=== PATIENT | male | born 1945 | race Two or more races ===

== ENCOUNTER 2019-04-03 11:05 | Observation (INO) | payer MEDICARE ==
[~2019-04-03] VITALS: Ht 167.6 cm; Wt 72.6 kg
[2019-04-03] VITALS (8 sets, daily range): BP systolic 87–106; BP diastolic 49–73; BMI 25.8
--- NOTE | ~2019-04-03 | HEMODYNAMI ---
PATIENT:TAWNYA AKERS MEDICAL RECORD: [id number] : 43 LOCATION[id number] [id number] ADMISSION DATE: 04/03/19 Generatedon:04/04/201912:10 Patient name: TAWNYA AKERS Patient #: [id number] SSN: [id number] : 1945 Date of study: 04/04/2019 Page: Of Hemodynamic Procedure Report Patient Data Patient Demographics Procedure consent was obtained First Name: TAWNYA Gender: Male Last Name: OSWALD : 1945 Patient #: [id number] Age: 73 year(s) Race: Other SSN: [id number] Additional ID: [id number] Contact details Address: [address] [place] [address] circle State: [place] City: [place] Zip code: [address] Past Medical History Allergies: No known allergies Admission Admission Data Admission Date: 04/03/2019 Admission Time: 12:48 Arrival Date: 04/04/2019 Arrival Time: 0:00 Admit Source: Other Insurance Payor: Private Room #: [id number] health insurance [facility] #: [id number] Height (in.): 66 BSA: 1.82 (m2) Height (cm.): 167.64 BMI: 25.88 (kg/m2) Weight (lbs.): 160.32 Weight (kg.): 72.72 Lab Results Lab Result Date: 04/04/2019 Lab Result Time: 0:00 Biochemistry Name Units Result Min Max BUN mg/dl 42 --(----)-* 7 18 Creatinine mg/dl 1.8 --(----)-* 0.6 1.3 eGFR ml/min 39 *-(----)-- 90 120 NONAFRICAN Troponin l ng/ml 38.653 --(----)-* 0 0.06 CBC Name Units Result Min Max Hematocrit % 38.2 *-(----)-- 42 54 Hemoglobin g/dl 12.7 -*(----)-- 13.5 17.5 Procedure Procedure Types Cath Procedure Diagnostic Procedure [facility] w/Coronaries Sedation Charges Moderate Sedation up to 30 minutes PCI Procedure Coronary Stent Coronary Stent Initial x2 PTCA PTCA Initial PTCA Additional Hemochron ACT Test Procedure Description Procedure Date Procedure Date: 04/04/2019 Procedure Start Time: 11:24 Procedure End Time: 12:04 Procedure Staff Name Function Chandan Paige MD Performing Physician Avelina Pittman RT Monitor Lev Peralta RN Nurse Megan Thomason RT Scrub Indication Shortness of breath Procedure Data Cath Procedure Fluoroscopy Diagnostic fluoroscopy Total fluoroscopy Time: time: 15.3 min 15.3 min Diagnostic fluoroscopy Total fluoroscopy dose: dose: 1500 mGy 1500 mGy Contrast Material Contrast Material Type Amount (ml) Isovue 300 214 Entry Location Entry Primary Successful Side Size Upsize Upsize Entry Closure Succes sful Closure Location (Fr) 1 (Fr) 2 (Fr) Remarks Device Remarks Femoral Right 5 Fr 6 Fr 7 Fr Exoseal artery Short Short Estimated blood loss: 10 ml Diagnostic catheters Device Type Used For End Catheter Placement MULTIPACK Pigtail 5 Fr Procedure catheter MULTIPACK JL 4.0 5Fr Procedure catheter MULTIPACK 3DRC 5Fr Procedure catheter Procedure Complications No complications Procedure Medications Medication Administration Route Dosage Oxygen etCO2 Nasal cannula 2 l/min Lidocaine 2% added to field 20 Heparin Flush Bag added to field 2 bags (1000units/500ml NS) 0.9% NaCl I.V. 100 ml/hr Versed I.V. 1 mg Fentanyl I.V. 50 mcg Heparin Bolus I.V. 4000 units Integrilin (Bolus I.V. 6.8 ml 2mg/ml) Versed I.V. 1 mg Fentanyl I.V. 50 mcg Versed I.V. 0.5 mg Hemodynamics Rest BSA: 1.82 (m2) HGB: 12.7 (g/dl) O2 Consumption: Estimated: 204.48 (ml/min) O2 Co nsumption indexed: Estimated:112.35 (ml/min/m) Heart Rate: 63 (bpm) Snapshots Pre Cath Intra NCS Post Cath Vital Signs Time Heart Resp SPO2 etCO2 NIBP (mmHg) Rhythm Pain Sedation Rate (ipm) (%) (mmHg) Status Level (bpm) 10:58:29 58 15 99 0 147/91(120) NSR 0 (11) 10(A) , No pain 11:02:47 63 14 99 0 144/74(119) NSR 0 (11) 10(A) , No pain 11:07:03 62 27 100 25.7 132/79(110) NSR 0 (11) 10(A) , No pain 11:11:17 61 17 99 0 138/72(103) NSR 0 (11) 10(A) , No pain 11:15:35 59 16 99 30.2 125/62(99) NSR 0 (11) 10(A) , No pain 11:20:34 58 17 98 32.5 115/61(88) NSR 0 (11) 10(A) , No pain 11:24:42 57 16 99 32.5 125/66(93) NSR 0 (11) 10(A) , No pain 11:28:56 56 15 98 33.3 111/63(84) NSR 0 (11) 9(A) , No pain 11:33:04 66 14 98 34 112/64(87) NSR 0 (11) 9(A) , No pain 11:37:14 56 14 98 36.3 111/60(83) NSR 0 (11) 9(A) , No pain 11:41:23 65 15 98 35.5 113/58(86) NSR 0 (11) 9(A) , No pain 11:45:31 56 15 98 35.5 116/64(91) NSR 0 (11) 9(A) , No pain 11:49:41 57 16 99 35.5 115/62(85) NSR 0 (11) 9(A) , No pain 11:53:49 60 16 99 34.7 118/68(89) NSR 0 (11) 9(A) , No pain 11:58:01 61 15 99 34 115/63(99) NSR 0 (11) 10(A) , No pain 12:03:00 59 17 99 31 Measuring NSR 0 (11) 10(A) , No pain 12:03:04 58 16 99 33.2 126/68(104) NSR 0 (11) 10(A) , No pain Medications Time Medication Route Dose Verified Delivered Reason Notes Effectiveness by by 11:14:46 Oxygen etCO2 2 Chandan Buffie used for Nasal l/min Royal Peralta RN procedure cannula 11:14:52 Lidocaine 2% added 20ml Chandan Buffie used for to vial Royal Peralta RN procedure field 11:14:58 Heparin Flush added 2 Chandan Buffie used for Bag to bags Royal Peralta RN procedure (1000units/500ml field NS) 11:15:11 0.9% NaCl I.V. 100 Chandan Buffie used for ml/hr Royal Peralta RN procedure 11:22:01 Versed I.V. 1 mg Chandan Bainsie for sedation Royal Peralta RN 11:22:06 Fentanyl I.V. 50 Chandan Buffie for sedation mcg Royal Peralta RN 11:26:48 Versed I.V. 1 mg Chandan Buffie for sedation Royal Peralta RN 11:26:51 Fentanyl I.V. 50 Chandan Buffie for sedation mcg Royal Peralta RN 11:30:29 Heparin Bolus I.V. 4000 Chandan Bainsie for verif ied units Royal Peralta RN anticoagulation with dr paige 11:32:30 Integrilin I.V. 6.8 Chandan Buffie for waste d (Bolus 2mg/ml) ml Royal Peralta RN antiplatelet 3.2 ml therapy of vial 11:39:35 Versed I.V. 0.5 Chandan Buffie for sedation mg Royal Peralta RN Procedure Log Time Note 10:07:10 Informed consent obtained and on chart 10:11:37 Arrival Date: 04/04/2019 12:00:00 AM 10:11:43 Insurance Payor : Private health insurance 10:12:21 Patient Height : 66 inches 10:12:31 Patient Weight : 160.32 lbs 10:12:37 Admit Source: Other 10:15:32 Lab Result : Creatinine 1.8 mg/dl 10:15:32 Lab Result : BUN 42 mg/dl 10:15:32 Lab Result : Hemoglobin 12.7 g/dl 10:15:32 Lab Result : Hematocrit 38.2 % 10:15:32 Lab Result : Troponin l 38.653 ng/ml 10:15:32 Lab Result : eGFR NONAFRICAN 39 ml/min 10:15:42 Diagnostic Cath Status : Urgent 10:16:06 Indication : Shortness of breath 10:16:20 Time tracking: Regular hours (M-F 7:00 - 5:00) 10:16:25 Plan of Care:Hemodynamics will remain stable., Cardiac rhythm will remain stable., Comfort level will be maintained., Respiratory function will remain adequate., Patient/ family verbilizes understanding of procedure., Procedure tolerated without complication., Recovers from procedure without complications.. 10:16:31 Procedure Status Urgent Heart Cath (IP). 10:16:43 H&P Date Dictated: 04/04/2019 Emergent; H&P N/A, Within 30 days and on chart.. 10:19:10 Risk of Mortality: 2.0 10:19:14 Risk of blood transfusion: 4.7 10:19:18 Risk of SARA: 17.2 10:40:15 Avelina Pittman RT(R) sent for patient. Start room use. 10:40:50 Patient NPO since Midnight. 10:41:21 Patient allergic to No known allergies 10:44:57 ACC Patient presents with Non-STEMI CCS Anginal Class 2--Slight limitation of ordinary activity. 10:45:08 Stress Test: no; N/A ? 10:45:14 Lab results completed and on chart. 10:45:17 Alarms reviewed by R. N. 10:45:18 Sharps counted by scrub and verified by R.N. 10:51:39 Patient received from Med II to CCL 1 Alert and oriented. Tansferred to table in Supine position. 10:51:42 Warm blankets applied, and pawel hugger turned on for patient comfort. 10:51:42 Correct patient and procedure confirmed by team. 10:51:46 ECG and BP/O2 sat monitors applied to patient. 10:51:51 Pre-procedure instructions explained to patient. 10:51:51 Pre-op teaching completed and patient verbalized understanding. 10:52:08 Patient diabetic? Yes. 10:52:11 If diabetic: On Metformin? No 10:57:00 Is the patient allergic to Iodine/contrast media? No. 10:57:03 Was the patient premedicated? Yes 10:57:04 Family in waiting room. 10:57:14 Full Disclosure recording started 10:58:00 Is patient on blood thinner?Yes 10:58:03 ACC The patient was administered the following blood thiners within the last 24 hours: ACCPlavix 600MG AT 0850 10:58:06 ----Pre-sedation anethsthesia assessment.---- 10:58:09 Previous problem with sedation/anesthesia? No ? 10:58:11 Snore? Yes 10:58:13 Sleep apnea? No 10:58:15 Deviated septum? No 10:58:16 Opens mouth fully? Yes 10:58:17 Sticks out tongue? Yes 10:58:19 Airway obstruction? No ? 10:58:22 Dentures? No ? 10:58:31 Pre procedure: right dorsailis pedis pulse 1+ Palpable, but thready & weak; easily obliterated 10:58:34 Patient pain scale 0/10 ?. 10:58:40 Right groin area was prepped with chlora-prep and draped in sterile fashion 10:58:54 IV patent on arrival in left antecubital with 0.9% NaCl at KVO. 10:59:15 Baseline sample Acquired. 10:59:22 Rhythm: sinus rhythm 11:06:02 Use device set Femoral Dx 11:06:03 ACIST Syringe (29406) opened to sterile field. 11:06:03 Bag Decanter (2002S) opened to sterile field. 11:06:04 ACIST Hand Control (51366) opened to sterile field. 11:06:05 ACIST Manifold (06941) opened to sterile field. 11:06:06 Tegaderm 4 x 4 (1626W) opened to sterile field. 11:06:07 Medline Cath Pack ([id number]) opened to sterile field. 11:06:08 DIAGNOSTIC Multipack 5Fr catheter set (WE2991) opened to sterile field. 11:06:09 SHEATH 5FR [place] (RXS540) opened to sterile field. 11:06:09 EMERALD Guide Wire (286-096) opened to sterile field. 11:14:46 Oxygen 2 l/min etCO2 Nasal cannula was administered by Lev Peralta RN; used for procedure; Verbal order read back and verified. 11:14:52 Lidocaine 2% 20ml vial added to field was administered by Lev Peralta RN; used for procedure; Verbal order read back and verified. 11:14:58 Heparin Flush Bag (1000units/500ml NS) 2 bags added to field was administered by Lev Peralta RN; used for procedure; Verbal order read back and verified. 11:15:11 0.9% NaCl 100 ml/hr I.V. was administered by Lev Peralta RN; used for procedure; Verbal order read back and verified. 11:21:13 --------ALL STOP TIME OUT------ 11:21:14 Final Timeout: patient, procedure, and site verified with staff and physician. All members of the team are in agreement. 11::15 Right groin site verified by team. 11:21:18 Fire Safety Assessment: A--An alcohol-based skin anteseptic being used preoperatively., C--Open oxygen or nitrous oxide is being used., D--An ESU, laser, or fiber-optic light is being used. 11:21:22 Physical assessment completed. ASA score P 2 - A patient with mild systemic disease as per Chandan Paige MD. 11:21:27 3b) 30-44 Moderately reduced kidney function. 11:21:30 Maximum allowable contrast dose (3.7 X eGFR X 0.75)108 ml. 11:21:35 Sedation plan: IV Moderate Sedation Medication:Versed, Fentanyl 11:22:01 Versed 1 mg I.V. was administered by Lev Peralta RN; for sedation; Verbal order read back and verified. 11:22:06 Fentanyl 50 mcg I.V. was administered by Lev Peralta RN; for sedation; Verbal order read back and verified. 11:24:08 Procedure started. 11:24:10 Zero performed for pressure channel P1 11:24:15 Zero performed for pressure channel P1 11:24:23 Local anesthetic to right femoral artery with Lidocaine 2% by Chandan Paige MD.INITIAL ACCESS ONLY 11:24:47 A 5 Fr sheath was inserted into the Right Femoral artery 11:25:11 A MULTIPACK Pigtail 5 Fr catheter was advanced over the wire and used for Procedure. 11::28 LV gram done using DECKER ::31 Injector settings: Ml/sec: 10, Volume: 20, 11::18 EF : 50 % 11::22 Catheter removed. 11::28 A MULTIPACK JL 4.0 5Fr catheter was advanced over the wire and used for Procedure. 11:26:48 Versed 1 mg I.V. was administered by Lev Peralta RN; for sedation; Verbal order read back and verified. 11:26:51 Fentanyl 50 mcg I.V. was administered by Lev Peralta RN; for sedation; Verbal order read back and verified. 11:27:31 LCA angiography performed. 11:27:33 Catheter removed. 11:27:37 A MULTIPACK 3DRC 5Fr catheter was advanced over the wire and used for Procedure. 11:28:28 RCA angiography performed. 11:28:30 Catheter removed. 11:28:42 GUIDE 6FR AR 1.0 SH catheter ([id number]) opened to sterile field. 11:28:44 CHOICE PT Extra Support 182cm wire ([id number]) opened to sterile field. 11:28:44 INFLATOR Merit BasixCompak (TI0435) opened to sterile field. 11:28:45 SHEATH 6FR [place] (HFR450) opened to sterile field. 11:28:48 Proceeding to intervention. 11:28:54 Sheath upsized to a 6 Fr Short. 11:29:17 Pre PCI Site: [place] mRCA has 90% stenosis. 11:29:53 ACCDominant side:Right 11:30:01 6 Fr AR 1 SH guide catheter was inserted over the wire 11:30:29 Heparin Bolus 4000 units I.V. was administered by Lev Peralta RN; for anticoagulation; verified with dr paige Verbal order read back and verified. 11:30:50 CHOICE ES 182 wire advanced. 11:32:21 Wire advanced across lesion. 11:32:23 Place stent Inflation Number: 1 A ALEX RX 2.5 x 18 stent ([id number]) was prepped and advanced across the Dist RCA . The stent was deployed at 11 EMILIE for 0:00 (min:sec) . 11:32:30 Integrilin (Bolus 2mg/ml) 6.8 ml I.V. was administered by Lev Peralta RN; for antiplatelet therapy; wasted 3.2 ml of vial Verbal order read back and verified. 11:33:07 Inflation number: 2 The stent balloon was then re-inflated across the Dist RCA to 19 EMILIE for 0:00 (min:sec) . 11:33:33 Stent catheter was removed intact over wire. 11:33:42 Wire removed. 11:33:42 Guide catheter removed. 11:34:45 CHOICE PT Extra Support J 300cm guide wire ([id number]) opened to sterile field. 11:34:50 GUIDE 6FR XBLAD 3.5 SH catheter ([id number]) opened to sterile field. 11:34:59 6 Fr XBLAD 3.5 guide catheter was inserted over the wire 11:35:26 Pre PCI Site: [place] mLAD has 100% stenosis. 11:35:44 CHOICE ES 300 wire advanced. 11:37:58 Wire advanced across lesion. 11:38:06 Inflate balloon Inflation number: 1 A EMERGE OTW 2.0 x 20 balloon ([id number]) was prepped and advanced across the Mid LAD , then inflated to 7 EMILIE for 0:00 (min:sec) . 11:38:20 Balloon removed over the wire. 11:39:35 Versed 0.5 mg I.V. was administered by Lev Peralta RN; for sedation; Verbal order read back and verified. 11:40:57 The EMERGE OTW 1.5 x 20 balloon ([id number]) was advanced and then removed because of failure to cross lesion 11:42:24 Inflate balloon Inflation number: 2 A EUPHORA 1.5 x 20 Balloon ([id number]) was prepped and advanced across the Mid LAD , then inflated to 21 EMILIE for 0:00 (min:sec) . 11:43:13 Balloon removed over the wire. 11:43:18 Wire removed. 11:43:19 Guide catheter removed. 11:43:31 SHEATH 7FR [place] (WKQ615) opened to sterile field. 11:43:49 GUIDE 7FR EBU 3.5 SH catheter ([id number]) opened to sterile field. 11:44:39 Sheath upsized to a 7 Fr Short. 11:44:54 7 Fr EBU 3.5SH guide catheter was inserted over the wire 11:45:04 Guide Catheter removed. unable to cannulate vessel. 11:45:12 GUIDE 7FR EBU 4.0 SH catheter ([id number]) opened to sterile field. 11:45:45 7 Fr EBU 4 SH guide catheter was inserted over the wire 11:46:18 CHOICE PT Extra Support 182cm wire ([id number]) opened to sterile field. 11:46:28 CHOICE ES 182 wire advanced ACROSS THE CIRC 11:49:54 Inflation number: 1 The EUPHORA 1.5 x 20 Balloon ([id number]) was reinflated across the Mid CX , to 21 EMILIE for 0:00 (min:sec) . 11:50:07 Inflation number: 2 The EUPHORA 1.5 x 20 Balloon ([id number]) was reinflated across the Mid CX , to 21 EMILIE for 0:00 (min:sec) . 11:50:21 Inflation number: 3 The EUPHORA 1.5 x 20 Balloon ([id number]) was reinflated across the Mid CX , to 21 EMILIE for 0:00 (min:sec) . 11:50:35 ACT drawn and resulted at 279 seconds. (normal therapeutic range 180-240 seconds). 11:50:59 Inflation number: 4 The EUPHORA 1.5 x 20 Balloon ([id number]) was reinflated across the Mid CX , to 21 EMILIE for 0:00 (min:sec) . 11:51:22 Inflation number: 5 The EUPHORA 1.5 x 20 Balloon ([id number]) was reinflated across the Mid CX , to 21 EMILIE for 0:00 (min:sec) . 11:51:36 Inflation number: 6 The EUPHORA 1.5 x 20 Balloon ([id number]) was reinflated across the Mid CX , to 21 EMILIE for 0:00 (min:sec) . 11:51:49 Balloon removed over the wire. 11:53:08 Inflate balloon Inflation number: 7 A EUPHORA 2.0 x 20 Balloon ([id number]) was prepped and advanced across the Mid CX , then inflated to 19 EMLIIE for 0:00 (min:sec) . 11:53:20 Balloon removed over the wire. 11:55:08 Place stent Inflation Number: 8 A ALEX RX 2.0 x 26 stent ([id number]) was prepped and advanced across the Mid CX . The stent was deployed at 21 EMILIE for 0:00 (min:sec) . 11:55:31 Stent catheter was removed intact over wire. 11:56:15 Wire redirected to OM. 11:57:51 Inflation number: 1 The EUPHORA 1.5 x 20 Balloon ([id number]) was reinflated across the 1st Ob Melody , to 21 EMILIE for 0:00 (min:sec) . 12:00:01 Balloon removed over the wire. 12:00:01 Wire removed. 12:00:02 Guide catheter removed. 12:00:33 EXOSEAL 7Fr (EX700) opened to sterile field. 12:00:43 Sheath removed intact; hemostasis achieved with Exoseal to the Right Femoral artery. 12:00:46 Procedure ended.(Physican Out) 12:01:55 Fluoroscopy time 15.30 minutes. 12:02:00 Flurop Dose total: 1500 12:02:00 Fluoroscopy dose: 1500 mGy 12:02:11 Dose Area Product 60791 mGy/cm. 12:02:20 Contrast amount:Isovue 300 214ml. 12:02:22 Sharps counted by scrub and verified by R.N. 12:02:24 Maximum allowable dose exceeded? Yes. 12:02:31 Post-op/insertion site Right Femoral artery dressed using a 4 x 4 and Tegaderm. 12:02:34 Post-procedure physical assessment completed. ASA score P 2 - A patient with mild systemic disease as per Chandan Paige MD. 12:02:36 Post procedure rhythm: unchanged. 12:02:39 Estimated blood loss: 10 ml 12:02:40 Post procedure instruction explained to patient.Patient verbalizes understanding. 12:02:41 Patient needs reinforcement of post procedure teaching. 12:03:17 Procedure type changed to Cath procedure, Diagnostic procedure, LHC, [facility] w/Coronaries, Sedation Charges, Moderate Sedation up to 30 minutes, PCI procedure, Coronary Stent, Coronary Stent Initial x2, PTCA, PTCA Initial, PTCA Additional, Hemochron ACT Test 12:04:19 Procedure and supply charges have been captured, reviewed, submitted and are correct. 12:04:22 Procedure Complication : No complications 12:04:24 Vital chart was stopped 12:04:25 [facility] Findings: MVD- PCI performed (see procedure note) 12:04:27 Operative report dictated upon procedure completion. 12:04:28 See physician's report for complete and final results. 12:04:30 Report given to PCU. 12:04:33 Patient transfered to PCU with Bed. 12:04:35 Procedure ended. 12:04:35 Full Disclosure recording stopped 12:04:47 ACC-PCI Only Patient was given prescriptions, or instructed by Chandan Paige MD to start/continue the following medications upon discharge: Plavix 12:04:49 End room use (Document Last) 12:09:17 End room use (Document Last) 12:09:40 End room use (Document Last) Intervention Summary Intervention Notes Time ActionType Lesion and Equipment Used Action# Pressure Duration Attributes 11:32:23 Place stent Dist RCA ALEX RX 2.5 x 1 11 00:00 18 stent ([id number]) 11:33:07 Reinflate Dist RCA ALEX RX 2.5 x 2 19 00:00 stent 18 stent balloon ([id number]) 11:38:06 Inflate Mid LAD EMERGE OTW 2.0 1 7 00:00 balloon x 20 balloon ([id number]) 11:40:57 Discard EMERGE OTW 1.5 Balloon x 20 balloon ([id number]) 11:42:24 Inflate Mid LAD EUPHORA 1.5 x 2 21 00:00 balloon 20 Balloon ([id number]) 11:49:54 Reinflate Mid CX EUPHORA 1.5 x 1 21 00:00 balloon 20 Balloon ([id number]) 11:50:07 Reinflate Mid CX EUPHORA 1.5 x 2 21 00:00 balloon 20 Balloon ([id number]) 11:50:21 Reinflate Mid CX EUPHORA 1.5 x 3 21 00:00 balloon 20 Balloon ([id number]) 11:50:59 Reinflate Mid CX EUPHORA 1.5 x 4 21 00:00 balloon 20 Balloon ([id number]) 11:51:22 Reinflate Mid CX EUPHORA 1.5 x 5 21 00:00 balloon 20 Balloon ([id number]) 11:51:36 Reinflate Mid CX EUPHORA 1.5 x 6 21 00:00 balloon 20 Balloon ([id number]) 11:53:08 Inflate Mid CX EUPHORA 2.0 x 7 19 00:00 balloon 20 Balloon ([id number]) 11:55:08 Place stent Mid CX ALEX RX 2.0 x 8 21 00:00 26 stent ([id number]) 11:57:51 Reinflate 1st Ob [place] EUPHORA 1.5 x 1 21 00:00 balloon 20 Balloon ([id number]) Device Usage Item Name Manufacture Quantity Catalog Number Hospital Part Current Minimal Lot# / Charge Number Stock Stock Serial# Code ACIST Syringe Acist 1 28206 579140 040887 844986 20 (22096) Medical Systems Inc Bag Decanter Microtek 1 2001S 750474 66809 271482 5 (2001S) Medical Inc. ACIST Hand Acist 1 28992 633887 878461 546375 5 Control Medical (82782) Systems Inc ACIST Manifold Acist 1 04884 733126 326016 817126 5 (34253) Medical Systems Inc Tegaderm 4 x 4 3M 1 1626W 006449 803986 856700 5 (1626W) Medline Cath Medline 1 [id number] 780193 97886 426930 5 Pack ([id number]) DIAGNOSTIC Cardinal 1 HJ9257 852667 64987 909067 30 Multipack 5Fr Health catheter set (LC5195) SHEATH 5FR Terumo 1 UQJ740 703116 956688 359483 5 [place] (JHQ883) EMERALD Guide Cardinal 1 502-455 402236 712490 957385 5 Wire (502-455) Health MULTIPACK Cardinal 1 512759 5 Pigtail 5 Fr Health catheter MULTIPACK JL Cardinal 1 993898 5 4.0 5Fr Health catheter MULTIPACK 3DRC Cardinal 1 254250 5 5Fr catheter Health GUIDE 6FR AR Medtronic 1 [id number] 780499 44704 326551 1 1.0 SH catheter ([id number]) CHOICE PT Vance 2 [id number] 695311 228110 579399 5 Extra Support Scientific 182cm wire ([id number]) INFLATOR Merit Merit 1 MO0139 990925 145168 973125 15 BasixUNX Medical (CE1642) SHEATH 6FR Terumo 1 LXP490 860323 242362 326393 40 [place] (MGL373) ALEX RX 2.5 x Medtronic 1 [id number] 691759 1571686 593781 5 [id number] 18 stent ([id number]) CHOICE PT Vance 1 [id number] 959090 305158 768988 5 Extra Support Scientific J 300cm guide wire ([id number]) GUIDE 6FR Cardinal 1 [id number] 277217 336694 594527 3 XBLAD 3.5 Health catheter (92769986) EMERGE OTW 2.0 Vance 1 [id number] 428884 397705 896350 5 [id number] x 20 balloon Scientific ([id number]) EMERGE OTW 1.5 Vance 1 [id number] 967143 001094 926327 5 36276478 x 20 balloon Scientific ([id number]) EUPHORA 1.5 x Medtronic 1 [id number] 326378 092840 282920 5 [id number] 20 Balloon ([id number]) SHEATH 7FR Terumo 1 HRI079 068282 193269 556134 5 [place] (XKX037) GUIDE 7FR EBU Medtronic 1 [id number] 129991 082540 207184 0 3.5 SH catheter ([id number]) GUIDE 7FR EBU Medtronic 1 [id number] 561941 382264 923240 0 4.0 SH catheter ([id number]) EUPHORA 2.0 x Medtronic 1 [id number] 455577 659225 751942 5 [id number] 20 Balloon ([id number]) ALEX RX 2.0 x Medtronic 1 [id number] 557561 6238234 327372 5 [id number] 26 stent ([id number]) EXOSEAL 7Fr Cardinal 1 EX700 627186 414524 461707 5 (EX700) Health Signature Audit [place] Stage Time Signature Unsigned Intra-Procedure 04/04/2019 Avelina Pittman 12:09:17 PM RT(R) Intra-Procedure 04/04/2019 Lev Peralta RN 12:09:40 PM Intra-Procedure 04/04/2019 Chandan Paige MD 12:09:57 PM [place] [id number] [facility] [place] [address]
[2019-04-03 11:47] LABS: BASOPHILS 0.2 % (0-2); EOSINOPHILS 0.6 % (0-7); HEMATOCRIT 42.7 % (42.0-54.0); HEMOGLOBIN 14.2 g/dL (13.5-17.5); IMMATURE GRANULOCYTES 0.2 % (0-5); LYMPHOCYTES 12.3 % (15-50); MCH 27.7 pg (26.0-34.0); MCHC 33.3 g/dL (31.0-37.0); MCV 83.2 fL (80.0-100.0); MEAN PLATELET VOLUME 11.4 fL (7.4-10.4); MONOCYTES 5.5 % (2-11); NEUTROPHILS 81.2 % (40-80); PLATELET COUNT 198 10x3/uL (130-400); RBC 5.13 10x6/uL (4.20-6.10); RDW 13.7 % (11.5-14.5); WBC 10.2 10x3/uL (4.8-10.8)
--- NOTE | 2019-04-03 11:55 | NUR ---
VOIDED 275ML OF URINE. ADMINISTERED 10MG HYDRALAZINE PER ORDER FOR HTN. ALSO 40MG LASIX IV PER ORDER.
--- NOTE | 2019-04-03 12:00 | NUR ---
REPEAT EKG PEFORMED S/P CARDIZEM ADMIN
[2019-04-03 12:01] LABS: INR 1.05 (0.85-1.17); PROTIME 13.2 SECONDS (11.6-15.0)
[2019-04-03 12:02] LABS: APTT 28.5 SECONDS (22.8-39.4)
[2019-04-03] MEDS ORDERED: COZAAR50 MG PO (12:03)
[2019-04-03] MEDS ORDERED: GLUCOTROL 5 MG T5 MG PO (12:03)
[2019-04-03] MEDS ORDERED: FLOMAX0.4 MG PO (12:03)
[2019-04-03] MEDS ORDERED: RESTORIL15 MG PO (12:03)
[2019-04-03] MEDS ORDERED: LIPITOR10 MG PO (12:04)
[2019-04-03] MEDS ORDERED: HYDROCODONE-IB1 EAC3 PO (12:04)
[2019-04-03] MEDS ORDERED: OMEPRAZOLE20 M1 PO (12:04)
[2019-04-03] MEDS ORDERED: VIAGRA50 MG PO (12:04)
--- NOTE | 2019-04-03 12:15 | NUR ---
CALLED REPORT TO [facility].
[2019-04-03 12:32] LABS: ALBUMIN 3.4 g/dL (3.4-5.0); ALKALINE PHOSPHATASE 63 U/L (46-116); ALT (SGPT) 24 U/L (10-68); BILIRUBIN - TOTAL 1.15 mg/dL (0.2-1.3); CALCIUM 9.8 mg/dL (8.5-10.1); CHLORIDE - SERUM 94 mmol/L (98-107); CKMB 6.2 U/L (0.0-3.6); CREATINE KINASE 91 UL (21-232); CREATININE - SERUM 1.9 mg/dL (0.6-1.3); MAGNESIUM - SERUM 1.7 mg/dL (1.8-2.4); POTASSIUM - SERUM 4.9 mmol/L (3.5-5.1); PROTEIN - SERUM 7.7 g/dL (6.4-8.2); SODIUM 131 mmol/L (136-145); UREA NITROGEN 32 mg/dL (7-18); eGFR NON AFRICAN AMERICAN 37 mL/min (90-120)
[2019-04-03 12:35] LABS: CALC OSMOLALITY 287 mosm/kg (275-300); GLUCOSE 424 mg/dL (74-106)
[2019-04-03 12:44] LABS: TROPONIN-I 0.734 ng/mL (0.000-0.060)
--- NOTE | 2019-04-03 12:59 | NUR ---
INSURANCE CLAIMS ASSISTANT AT BEDSIDE FOR AT THIS TIME.
--- NOTE | 2019-04-03 13:28 | NUR ---
ATTEMPTED TO CALL REPORT, NURSE UNAVAILABLE
--- NOTE | 2019-04-03 14:12 | NUR ---
REPORT CALLED TO CARLITA OSORIO
--- NOTE | 2019-04-03 14:22 | NUR ---
CARDIAC DIET SERVED. APPETITE GOOD
--- NOTE | 2019-04-03 14:40 | NUR ---
TRANSPORTED TO ROOM #2122, CONDITION STABLE
--- NOTE | 2019-04-03 14:46 | NUR ---
ARRIVE TO ROOM VIA STRETCHER FROM ER. AMBULATE TO RESTROOM GAIT STEADY. ALERT AND ORIENTED X4. NO SCDs. RECIEVES ELIQUIS. IV BOLUS CONTINUE UNTIL COMPLETE THROUGH RT AC IV. LT AC IV SL. CONTINUE ADMISSION PROCESS AND SAFETY PRECAUTIONS.
--- NOTE | 2019-04-03 18:07 | NUR ---
ALERT AND ORIENTED X4. SITTING UP IN BED. CRITICAL LAB TRIPONIN [phone] PAGE WITH RESULTS.
--- NOTE | 2019-04-03 18:18 | NUR ---
CALL OF [facility]. HOLD HARSHA PEDRAZA AND ADMINISTER LOVENOX INJ PER VIA TELEPHONE.
--- NOTE | 2019-04-03 20:39 | NUR ---
HS MEDS GIVEN WITH FRESH ICE WATER, BS [phone], NO COVERAGE GIVEN DUE TO PT BEING NPO FOR POSIBLE PROCEDURE IN AM.
[2019-04-04] VITALS: BP 94/61
--- NOTE | 2019-04-04 02:12 | NUR ---
RESTING WITH EYES CLOSED, RESPERATONS EVEN, NO S/S DISTRESS NOTED.
--- NOTE | 2019-04-04 03:45 | NUR ---
NOTIFIED BY MT THAT PT HAS CONVERTED TO SR/SB WITH HR FLUCTUATING FROM HIGH 50'S TO LOW 60'S
[2019-04-04 04:00] VITALS: BP 101/57
--- NOTE | 2019-04-04 07:20 | NUR ---
RECIEVE REPORT. ALERT AND ORIENTED X4. SITTING UP IN BED. NO SIGNS OF DISTRESS. SINUS HANK 56. PAGE OF ELEVATED TROPONIN 53.491. DENIES ANY NEEDS AT THIS TIME. CONTINUE PLAN OF CARE AND SAFETY PRECAUTIONS.
[2019-04-04 08:21] LABS: BASOPHILS 0.6 % (0-2); EOSINOPHILS 4.6 % (0-7); HEMATOCRIT 38.2 % (42.0-54.0); HEMOGLOBIN 12.7 g/dL (13.5-17.5); IMMATURE GRANULOCYTES 0.1 % (0-5); LYMPHOCYTES 24.5 % (15-50); MCH 27.7 pg (26.0-34.0); MCHC 33.2 g/dL (31.0-37.0); MCV 83.4 fL (80.0-100.0); MEAN PLATELET VOLUME 11.3 fL (7.4-10.4); MONOCYTES 9.5 % (2-11); NEUTROPHILS 60.7 % (40-80); PLATELET COUNT 194 10x3/uL (130-400); RBC 4.58 10x6/uL (4.20-6.10); RDW 13.9 % (11.5-14.5); WBC 8.7 10x3/uL (4.8-10.8)
[2019-04-04 08:32] LABS: ANION GAP 17.4 mmol/L (8-16); CALCIUM 8.9 mg/dL (8.5-10.1); CARBON DIOXIDE 21.8 mmol/L (21.0-32.0); CHOL - HDL RATIO 4.9 ratio (2.3-4.9); CREATININE - SERUM 1.8 mg/dL (0.6-1.3); LDL-HDL RATIO 3.6 ratio (1.5-3.5); POTASSIUM - SERUM 5.2 mmol/L (3.5-5.1)
[2019-04-04 09:38] VITALS: BP 111/56
--- NOTE | 2019-04-04 10:46 | NUR ---
ALERT AND ORIENTED X4. CONSENTS FOR BROOM BUILDER SIGNED ON CHART. TAKEN TO LAB VIA BED. CONTINUE PLAN OF CARE AND SAFETY PRECAUTIONS.
[2019-04-04 11:42] VITALS: Ht 167.6 cm; Wt 72.6 kg
--- NOTE | 2019-04-04 12:26 | NUR ---
ARRIVE BACK TO ROOM VIA BED FROM WHARF TALLY CLERK. SEDATED. AROUSES TO VOICE. RT GROIN DRESSING CLEAN DRY INTACT. FREE FROM HEMATOMA. FREE FROM BLEEDING. PULSE PALPABLE BILATERALLY. BP-132/68, HR-55 SINUS HANK, O2-99% WITH 2L NC. CONTINUE PLAN OF CARE AND SAFETY PRECAUTIONS.
[2019-04-04 18:44] VITALS: BP 134/65
--- NOTE | 2019-04-04 19:45 | NUR ---
EVENING ROUNDS COMPLETED. VSS, AAOX4, NO S/S OF DISTRESS. STATES PAIN 5/10. DRESSING TO GROIN C/D/I, S/S OF BLEEDING OR HEMATOMA. FSBS 174, PT REFUSED INSULIN, STATES ITS ABOUT HIS BASELINE. PT LAYING SUPINE AT THIS TIME, AND ON BED REST. WILL CPOC. CL WITHIN REACH.
[2019-04-04 20:40] VITALS: BP 120/63
[2019-04-05 00:20] VITALS: BP 115/69
[2019-04-05 04:47] VITALS: BP 103/46
[2019-04-05 08:00] VITALS: BP 126/64
--- NOTE | 2019-04-05 08:33 | NUR ---
AM MEDS GIVEN AT THIS TIME. PT A/O X4, RESP EVEN AND NONLABORED ON RA. PT DENIES ANY NEEDS AT THIS TIME. CALL LIGHT IN REACH, NAD NOTED, WILL CONTINUE TO MONITOR.
[2019-04-05] MEDS ORDERED: BAYER CHEWABLE81 MG PO (08:56)
[2019-04-05] MEDS ORDERED: BETAPACE 80 MG80 MG PO (09:00)
[2019-04-05] MEDS ORDERED: PLAVIX75 MG PO (09:01)
--- NOTE | 2019-04-05 09:40 | NUR ---
PROVIDED VERBAL AND WRITTEN DISCHARGE TEACHING TO PT, WHO VERBALIZED UNDERSTANDING REGARDING TEACHING. REMOVED HEART MONITOR AND TAKEN TO STRATIGRAPHER. PT'S RIDE WILL BE HERE AROUND 12. PT DENIES ANY NEEDS AT THIS TIME. CALL LIGHT IN REACH, NAD NOTED, WILL CONTINUE TO MONITOR.
--- NOTE | 2019-04-05 09:50 | MORECARE ---
CASE MANAGEMENT DISCHARGE SUMMARY PATIENT: TAWNYA AKERS UNIT: [id number] ADM DATE: 04/03/19 AGE: 73 : 43 SEX: M ROOM/BED: D.2121 AUTHOR: HANSEL BOB PHYSICIAN: REFERRING PHYSICIAN: YVROSE GUDINO MD DATE OF SERVICE: 04/05/19 Discharge Plan Patient Name: TAWNYA AKERS [facility] : 1945 Planned Disposition: Home Anticipated Discharge Date: 04/05/19 Discharge Date: Expected LOS: 2 Initial Reviewer: [email or web address] Initial Review Date: 04/05/2019 Generated: 04/05/19 10:50 am Coverage Notice Reviewer: [email or web address] Americo Brooks Notice Issued Date-Time: 04/03/2019 12:50 Notice Type: Medicare Outpatient Observation Notice Notice Delivered To: Patient Relationship to Patient: Self Rod Drawer Name: Tawnya Akers Delivery Method: HAND - Hand Delivered Regina Days: Prior Verbal Notification: Recipient Understood Notice: Yes Recipient Signature: Yes Med Rec Note Co-signed by Attending: Coverage Notice Comment: ANGELA delivered to and signed by patient. Original given to patient and one placed on chart. Patient Name: TAWNYA AKERS Page [phone] at 0950 All edits/amendments must be made on the electronic document DICTATION DATE: 04/05/19 0950 SONOSCOPE OPERATOR: ROGER 04/05/19 0950 RPT#: [id number] DC DATE: STATUS: ADM IN [facility] [address] [place] [address] END OF REPORT
--- NOTE | 2019-04-05 11:33 | NUR ---
BLOOD SUGAR OF 271, 10UNITS OF INSULIN GIVEN PER S/S. PT DENIES ANY NEEDS AT THIS TIME. CALL LIGHT IN REACH, NAD NOTED, WILL CONTINUE TO MONITOR.
--- NOTE | 2019-04-05 13:57 | NUR ---
PT LEFT UNIT VIA WHEELCHAIR, WITH ALL BELONGINGS, ACCOMPANIED BY DAUGHTER, NAD NOTED.
--- NOTE | 2019-04-06 15:25 | OP ---
PATIENT NAME: TAWNYA AKERS MEDICAL RECORD: [id number] :43 LOCATION:D.M2 D.2 ADMISSION DATE:04/03/19 SURGEON: YVROSE GUDINO MD DATE OF OPERATION: 04/04/2019 DATE OF SERVICE: 04/04/2019 PROCEDURES: 1. PTCA stent RCA. 2. PTCA, left circumflex to obtuse marginal. 3. PTCA, LAD. 4. Left heart catheterization. 5. Selective coronary angiography. 6. Left ventriculogram. INDICATION: Non-Q-wave myocardial infarction. PROCEDURE IN DETAIL: After informed consent was obtained and after a detailed description of the risks, benefits as well as alternative therapies, the patient elected to proceed with angiogram and angioplasty. The right femoral area was prepped and draped in normal sterile fashion. Right femoral artery was cannulated via modified Seldinger technique with placement of 7-Maltese sheath. All catheters exchanged through this sheath. FINDINGS: Left ventriculogram was performed in a standard 30-degree DECKER view, reveals preserved cardiac wall motion, ejection fraction 50%. SELECTIVE CORONARY ANGIOGRAPHY: 1. Left main has no significant angiographic disease. 2. Left anterior descending is totally occluded in mid vessel. This fills via right to left collaterals. 3. Left circumflex has 99% stenosis in the mid vessel. 4. Right coronary artery has 90% stenosis in the mid vessel. PTCA STENT OF THE RIGHT CORONARY: The stent used was a 2.5 x 18 mm Randall taken to 23 atmospheres. Result was 0% residual stenosis. PTCA STENT OF THE LEFT CIRCUMFLEX: The stent used was a 2.0 x 26 mm Randall taken to 21 atmospheres. Result was 0% residual stenosis. This caused plaque shift into the obtuse marginal; the obtuse marginal was ballooned with a 1.5 and 2.0 balloon. PTCA OF THE LAD: We were able to traverse the total occlusion with a Choice PT extra support wire. We were able to get a 1.5 and 2.0 balloon partially into the total occlusion, but would not traverse the total occlusion. We did balloon at 17 atmospheres with each balloon. This remained totally occluded, but as stated above, there was well-developed right to left collaterals collateralizing the distal LAD, hence we left this. 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 This will be treated medically. OPERATIVE REPORT [id number] TAWNYA AKERS TRANSINT:[id number] Voice Confirmation ID: [id number] DOCUMENT ID: [id number] YVROSE GUDINO MD at 1525 CC: [id number] DICTATION DATE: 04/04/19 1211 CO CHAIRMAN: 04/04/19 1257 DIS IN 04/05/[address] [facility] [address] [place] [address]
--- NOTE | 2019-04-06 15:25 | HP ---
PATIENT: TAWNYA LAN MEDICAL RECORD: [id number] ACCOUNT: [id number] LOCATION:[address] : 43 ADMISSION DATE: 04/03/19 PCP: MARCELLO SEQUEIRA MD HISTORY AND PHYSICAL EXAMINATION DIAGNOSES: 1. New onset atrial fibrillation. 2. Shortness of breath. 3. Valvular heart disease, mitral regurgitation. 4. Hypertension. HISTORY OF PRESENT ILLNESS: Mr. Lan is known to us with a past history of valvular heart disease and hypertension, but not a history of atrial fibrillation. Today, he had a sudden onset of palpitations associated with mild shortness of breath. No chest pain or chest discomfort. He showed up with an EKG compatible with atrial fibrillation with rapid ventricular response, was given IV Cardizem, currently on Cardizem and his ventricular response is now at approximately 100. He has a history of mitral regurgitation. No history arrhythmias. PHYSICAL EXAMINATION: CONSTITUTIONAL/GENERAL APPEARANCE: Well nourished, well developed, appears stated age. EYES: Lids and conjunctivae noninjected. No discharge. No pallor. ENT: Lips within normal limit. No cyanosis. No pallor. NECK: Carotid arteries, bilateral normal upstroke. No bruits. No thrills. No jugular venous pressure or distention. CERVICAL LYMPH NODES: Nontender. Nonenlarged. THYROID: Not enlarged. No nodules. CARDIOVASCULAR: Precordial exam, nondisplaced. No heaves or pericardial thrills. Rate and rhythm, regular. Heart sounds, normal S1, normal S2. No S3, no gallop, no rub. Systolic murmur, not heard. Diastolic murmur, not heard. RESPIRATORY: Respiratory effort, unlabored. Normal curvature. No thoracic deformity. No chest wall tenderness. Percussion, resonant. Auscultation, clear. No wheezes, no rales, no rhonchi. ABDOMEN: Soft, nondistended, nontender. No abdominal pain, no vomiting and normal appetite. MUSCULOSKELETAL: No joint tenderness, normal gait, normal tone. SKIN: Warm and dry. OVERALL IMPRESSION: Atrial fibrillation, most likely secondary to left atrial enlargement from his mitral regurgitation. We will repeat the echocardiogram to reevaluate her mitral regurgitation. Start him on sotalol and Eliquis. If he does not convert today, plan for DC cardioversion tomorrow. TRANSINT:[id number] Voice Confirmation ID: [id number] DOCUMENT ID: [id number] HISTORY AND PHYSICAL [id number] TAWNYA LAN JEFFREY MD at 1525 CC: [id number] DICTATION DATE: 04/03/191217 CRITICAL CARE REGISTERED NURSE: 04/03/19 1308 DIS IN 04/05/19 [place] [id number] [place] [id number]
--- NOTE | 2019-04-06 15:25 | DS ---
PATIENT:TAWNYA AKERS :43 MEDICAL RECORD: [id number] DISCHARGE SUMMARY ADMISSION DATE: 04/03/19 DISCHARGE DATE: 04/05/19 DIAGNOSES: 1. Non-Q-wave myocardial infarction. 2. Coronary artery disease. 3. Percutaneous transluminal coronary angioplasty stent right coronary artery and left circumflex this admission. 4. Atrial fibrillation. 5. Hyperlipidemia. HOSPITAL COURSE: Mr. Akers presents with atrial fibrillation, shortness of breath and a markedly elevated troponin, underwent cardiac catheterization revealing severe 3-vessel coronary artery disease, underwent successful PTCA stent of circumflex and RCA, LAD was chronically totally occluded, but fills via right to left collaterals. He was started on sotalol. He reverted to sinus rhythm with the sotalol, aspirin, Plavix, continued his Lipitor that he is on at home. We will follow up with [facility] in 1 month. TRANSINT:[id number] Voice Confirmation ID: [id number] DOCUMENT ID: [id number] YVROSE GUDINO MD at 1525 CC: [id number] DICTATION DATE: 04/05/19 0816 FACILITIES ADMINISTRATOR: 04/06/19 0341 DIS IN 04/05/19 [facility] [address] [place] [address]
--- NOTE | 2019-04-06 15:25 | EC ---
PATIENT:TAWNYA AKERS DATE OF SERVICE: 04/03/19 SEX: M MEDICAL RECORD: [id number] DATE OF : 43 LOCATION:D.M2 D.212 AGE OF PATIENT: 73 ADMISSION DATE: 04/03/19 REFERRING PHYSICIAN: INTERPRETING PHYSICIAN: YVROSE PAIGE MD ECHOCARDIOGRAM REPORT ECHO CHARGES 4 ECHO COMPLETE Date: 04/03/19 CLINICAL DIAGNOSIS: A-FIB/MR ECHOCARDIOGRAPHIC MEASUREMENTS (adult normal given) AC root (d.<3.7cm) 3.0 cm LV Septum d (<1.2 cm> 1.0 cm Valve Excursion 1.5 cm LV Septum (systole) 1.4 cm Left Atria (s.<4.0cm> 5.1 cm LVPW d(<1.2cm) 0.9 cm RV (d.<2.3cm) 2.2 cm LVPW (sytole) 1.2 cm LV diastole(<5.6CM) 4.9 cm MV E-F(>70mm/sec) cm LV systole 3.6 cm LVOT Diameter 1.7 cm MV exc.(>10mm) cm Est.ejection fraction (50-75%) % DOPPLER: LVIT cm/sec A cm/sec E 306 cm/sec LA cm/sec RVSP 53.0 mmHg LVOT 80.0 cm/sec AOP1/2T m/s Asc. Ao 121 cm/sec RVOT 47.0 cm/sec RA cm/sec PA 70.0 cm/sec AV Gradient Peak 5.9 mmHg AV Mean 2.9 mmHg AV Area 1.7 cm MV Gradient Peak 33.1 mmHg MV Mean 16.4 mmHg MV Area 0.6 cm COMMENTS: District Manager Major Accounts Sales: 1 LIZA GOMEZOE Green Marketing Analyst: 1 Dr. Paige TAPE# PACS Pericardial Effusion N DATE OF SERVICE: ECHOCARDIOGRAM FINDINGS: 1. Left ventricular chamber size is within normal limits. Left ventricular systolic function is normal. Overall ejection fraction estimated at 55%. 2. Left atrium is enlarged at 5.1 cm. Right atrium and right ventricular chamber sizes are as well mildly dilated. 3. Valvular structures; the aortic and mitral valve are both heavily calcified; ECHOCARDIOGRAM REPORT [id number] TAWNYA AKERS however, there is minimal stenosis of both. There is a gradient of only 6-mm across the aortic valve. 4. Doppler interrogation reveals mild aortic insufficiency, moderate mitral regurgitation, moderate tricuspid regurgitation, no other valvular insufficiency or stenosis. 5. No evidence of pericardial effusion or left ventricular thrombus. TRANSINT:[id number] Voice Confirmation ID: [id number] DOCUMENT ID: [id number] YVROSE PAIGE MD at 1525 CC: [id number] DICTATION DATE: 04/04/19 1208 CHARTER COORDINATOR: 04/04/19 1250 DIS IN 04/05/19 [place] [id number] [place] [id number]
== END 2019-04-05 14:10 | disposition home or self-care (01) ==
LOC: D.ER 11:05 → D.M2 12:48 → OBSVTIME 12:48 → D.M2 12:48
PROVIDERS: Family Medicine; ADMIT Internal Medicine Interventional Cardiology; ATTEND Internal Medicine Interventional Cardiology
DX: I21.4 Non-ST elevation (NSTEMI) myocardial infarction (principal); I48.91 Unspecified atrial fibrillation; E11.9 Type 2 diabetes mellitus without complications; E78.5 Hyperlipidemia, unspecified; I25.10 Atherosclerotic heart disease of native coronary artery without angina pectoris
CPT/HCPCS: 92920; 93458; 92921; C9600 ×2

== ENCOUNTER 2019-04-10 13:25 | Observation (INO) | payer MEDICARE ==
[~2019-04-10] VITALS: Ht 167.6 cm; Wt 72.7 kg
[~2019-04-10 13:25] MED LIST: BAYER CHEWABLE81 MG PO; BETAPACE 80 MG80 MG PO; COZAAR50 MG PO; FLOMAX0.4 MG PO; GLUCOTROL 5 MG T5 MG PO; HYDROCODONE-IB1 EAC3 PO; LIPITOR10 MG PO; OMEPRAZOLE20 M1 PO; PLAVIX75 MG PO; RESTORIL15 MG PO; VIAGRA50 MG PO
[2019-04-10 14:09] LABS: BASOPHILS 1.4 % (0-2); EOSINOPHILS 9.1 % (0-7); HEMATOCRIT 38.8 % (42.0-54.0); HEMOGLOBIN 12.9 g/dL (13.5-17.5); IMMATURE GRANULOCYTES 0.3 % (0-5); LYMPHOCYTES 30.8 % (15-50); MCH 27.6 pg (26.0-34.0); MCHC 33.2 g/dL (31.0-37.0); MCV 83.1 fL (80.0-100.0); MEAN PLATELET VOLUME 10.4 fL (7.4-10.4); NEUTROPHILS 47.4 % (40-80); RBC 4.67 10x6/uL (4.20-6.10); RDW 13.8 % (11.5-14.5); WBC 5.9 10x3/uL (4.8-10.8)
[2019-04-10 14:21] LABS: APTT 27.9 SECONDS (22.8-39.4); INR 1.05 (0.85-1.17); PROTIME 13.2 SECONDS (11.6-15.0)
[2019-04-10 14:23] LABS: CALC OSMOLALITY 288 mosm/kg (275-300); CALCIUM 9.5 mg/dL (8.5-10.1); CARBON DIOXIDE 28.8 mmol/L (21.0-32.0); CHLORIDE - SERUM 98 mmol/L (98-107); CREATININE - SERUM 1.4 mg/dL (0.6-1.3); GLUCOSE 327 mg/dL (74-106); POTASSIUM - SERUM 4.7 mmol/L (3.5-5.1); SODIUM 136 mmol/L (136-145); UREA NITROGEN 23 mg/dL (7-18); eGFR NON AFRICAN AMERICAN 52 mL/min (90-120)
[2019-04-10 14:27] LABS: PLATELET COUNT 289 10x3/uL (130-400)
[2019-04-10 14:40] LABS: ALBUMIN 3.2 g/dL (3.4-5.0); ALKALINE PHOSPHATASE 68 U/L (46-116); ALT (SGPT) 21 U/L (10-68); BILIRUBIN - TOTAL 0.46 mg/dL (0.2-1.3); CKMB 1.5 U/L (0.0-3.6); CREATINE KINASE 42 UL (21-232); MAGNESIUM - SERUM 1.8 mg/dL (1.8-2.4); PROTEIN - SERUM 7.3 g/dL (6.4-8.2)
--- NOTE | 2019-04-10 19:22 | NUR ---
RECEIVED BEDSIDE REPORT. PATIENT IS ALERT AND ORIENTED, RESTING COMFORTABLY IN BED. RESPIRATIONS ARE EVEN AND UNLABORED. NO S/S OF DISTRESS. NO C/OPAIN. NEEDS MET. CALL LIGHT WITHIN REACH. WILL CPOC.
[2019-04-10 20:00] VITALS: BP 114/69
[2019-04-10 20:32] LABS: CKMB 1.5 U/L (0.0-3.6); CREATINE KINASE 48 UL (21-232)
[2019-04-10 22:09] VITALS: Ht 167.6 cm; Wt 72.7 kg
--- NOTE | 2019-04-10 23:57 | NUR ---
PATIENT APPEARS TO BE SLEEPING. RESPIRATIONS ARE EVEN AND UNLABORED. NO S/S OF DISTRESS. CALL LIGHT WITHIN REACH. WILL CPOC.
[2019-04-11 00:09] VITALS: BP 111/50
--- NOTE | 2019-04-11 02:00 | NUR ---
PATIENT APPEARS TO BE SLEEPING. RESPIRATIONS ARE EVEN AND UNLABORED. NO S/S OF DISTRESS. NO C/OPAIN. CALL LIGHT WITHIN REACH. WILL CPOC.
[2019-04-11 02:28] LABS: BASOPHILS 1.1 % (0-2); EOSINOPHILS 9.1 % (0-7); HEMATOCRIT 35.5 % (42.0-54.0); IMMATURE GRANULOCYTES 0.5 % (0-5); LYMPHOCYTES 36.6 % (15-50); MCH 27.9 pg (26.0-34.0); MCHC 33.8 g/dL (31.0-37.0); MCV 82.6 fL (80.0-100.0); NEUTROPHILS 40.7 % (40-80); PLATELET COUNT 285 10x3/uL (130-400); RDW 13.8 % (11.5-14.5); WBC 6.6 10x3/uL (4.8-10.8)
[2019-04-11 02:56] LABS: ALBUMIN 2.8 g/dL (3.4-5.0); ALKALINE PHOSPHATASE 56 U/L (46-116); ALT (SGPT) 19 U/L (10-68); BILIRUBIN - TOTAL 0.36 mg/dL (0.2-1.3); CALCIUM 8.8 mg/dL (8.5-10.1); CARBON DIOXIDE 30.5 mmol/L (21.0-32.0); CHLORIDE - SERUM 103 mmol/L (98-107); CKMB 1.2 U/L (0.0-3.6); CREATINE KINASE 37 UL (21-232); CREATININE - SERUM 1.5 mg/dL (0.6-1.3); MAGNESIUM - SERUM 1.6 mg/dL (1.8-2.4); PHOSPHOROUS 3.9 mg/dL (2.5-4.9); POTASSIUM - SERUM 4.4 mmol/L (3.5-5.1); PROTEIN - SERUM 6.4 g/dL (6.4-8.2); SODIUM 140 mmol/L (136-145); UREA NITROGEN 23 mg/dL (7-18); eGFR NON AFRICAN AMERICAN 48 mL/min (90-120)
[2019-04-11 02:57] LABS: CALC OSMOLALITY 283 mosm/kg (275-300); GLUCOSE 114 mg/dL (74-106); TROPONIN-I 3.049 ng/mL (0.000-0.060)
--- NOTE | 2019-04-11 03:08 | NUR ---
MG CAME BACK AT 1.6. FOLLOWED EP. MG INFUSING AT THIS TIME.
[2019-04-11 04:00] VITALS: BP 118/60
--- NOTE | 2019-04-11 04:13 | NUR ---
PATIENT STATED, "TELL DEMETRIA THE LUNESTA DIDN'T WORK."
[2019-04-11 05:43] LABS: APPEARANCE CLEAR (CLEAR); BILIRUBIN NEGATIVE (NEGATIVE); COLOR STRAW (YELLOW); GLUCOSE NEGATIVE (NEGATIVE); KETONE NEGATIVE (NEGATIVE); NITRITE NEGATIVE (NEGATIVE); PROTEIN NEGATIVE (NEGATIVE); UROBILINOGEN NORMAL (NORMAL)
--- NOTE | 2019-04-11 08:44 | NUR ---
NUTRITION F/U VISITED WITH PT ~ DIABETIC DIET. PT STATES HE HAS NOT BEEN WATCHING HIS DIET WELL HE SHOULD SINCE HIS . STATES HE USES A "HOLISTIC APPROACH" TO HIS DIABETES AND PLANS TO START WATCHING HIS DIET MORE CLOSELY. PT ALSO REPORTS THAT HE CHECKS HIS BLOOD SUGAR REGULARLY. RD FOLLOWING
[2019-04-11 09:16] LABS: CKMB 1.5 U/L (0.0-3.6); CREATINE KINASE 36 UL (21-232)
[2019-04-11 09:17] LABS: TROPONIN-I 3.079 ng/mL (0.000-0.060)
[2019-04-11 09:19] VITALS: BP 129/56
--- NOTE | 2019-04-11 10:06 | NUR ---
DR. FERNÁNDEZ NOTIFIED OF CE. DR. FERNÁNDEZ STATES IT IS OK FOR DC. ELEVATED CE WAS RESIDULE FROM LAST WEEKS CT. TEXT SENT TO DYANA LICONA.
[2019-04-11] MEDS ORDERED: BETAPACE 80 MG80 MG PO (10:26)
--- NOTE | 2019-04-11 10:27 | NUR ---
DR. FERNÁNDEZ STATES TO CONT. BETAPACE AT 40MG BID WITH HR 48-54. DYANA LICONA NOTIFIED CHANGE.
--- NOTE | 2019-04-11 13:01 | NUR ---
IV AND TELEMETRY DCD. DC PLANS GIVEN. UNDERSTANDING VOICED.
--- NOTE | 2019-04-11 17:01 | MORECARE ---
CASE MANAGEMENT DISCHARGE SUMMARY PATIENT: TAWNYA AKERS UNIT: [id number] ADM DATE: 04/10/19 AGE: 74 : 43 SEX: M ROOM/BED: D.[facility]8 AUTHOR: HANSEL BOB PHYSICIAN: REFERRING PHYSICIAN: ABDULAZIZ LEE MD DATE OF SERVICE: 04/11/19 Discharge Plan Patient Name: TAWNYA AKERS Facility: [facility]:[place] : 1945 Planned Disposition: Home Anticipated Discharge Date: 04/11/19 Discharge Date: 04/11/2019 Expected LOS: 1 Initial Reviewer: [email or web address] Initial Review Date: 04/11/2019 Generated: 04/11/19 6:01 pm Coverage Notice Reviewer: [email or web address] Americo Romo Notice Issued Date-Time: 04/10/2019 17:02 Notice Type: Notice Delivered To: Patient Relationship to Patient: Director Of State Name: Delivery Method: HAND - Hand Delivered Regina Days: Prior Verbal Notification: Recipient Understood Notice: Recipient Signature: Med Rec Note Co-signed by Attending: Coverage Notice Comment: Patient Name: TAWNYA AKERS Page [phone] at 1701 All edits/amendments must be made on the electronic document DICTATION DATE: 04/11/191700 SECURITY MANAGEMENT SPECIALIST: ROGER 04/11/191700 RPT#: [id number] DC DATE:04/11/19 STATUS: DIS IN [facility] [address] [place] [address] END OF REPORT
== END 2019-04-11 13:01 | disposition home or self-care (01) ==
LOC: D.ER 13:25 → OBSVTIME 17:57 → D.M2 17:57
PROVIDERS: Family Medicine; ADMIT Internal Medicine Nephrology; ATTEND Internal Medicine Nephrology
DX: R00.1 Bradycardia, unspecified (principal); D64.9 Anemia, unspecified; I25.119 Atherosclerotic heart disease of native coronary artery with unspecified angina pectoris; N40.0 Benign prostatic hyperplasia without lower urinary tract symptoms; E11.9 Type 2 diabetes mellitus without complications; E83.42 Hypomagnesemia; N17.9 Acute kidney failure, unspecified; I48.0 Paroxysmal atrial fibrillation; Z79.01 Long term (current) use of anticoagulants